=== PATIENT | female | born 2000 | race Caucasian/White ===

== ENCOUNTER 2020-09-23 19:38 | Emergency (ER) | payer OTHER, MEDICAID, SELFPAY ==
--- NOTE | 2020-09-23 19:52 | ED.GENADULT ---
HPI - General Adult General Chief complaint: Trauma Stated complaint: ABD PAIN - INJ Time Seen by Provider: 09/23/20 19:52 Source: patient Mode of arrival: ambulatory Limitations: no limitations History of Present Illness HPI narrative: states tripped and fell and hit the left side of her upper ribs into the corner of a counter at work. Injury occurred just prior to arrival. States pain only at the mid lateral rib area where there is a small bruise. There is no abdominal pain. There was no other injury. Onset (ago): minute(s) Location: chest Radiation: non-radiation Severity: mild Quality: aching Pain Consistency: constant Relieving factors: immobilization Exacerbating factors: movement Associated symptoms: denies other symptoms Treatments prior to arrival: none Related Data Allergies Allergy/AdvReac Type Severity Reaction Status Date / Time No Known Allergies Allergy Verified 09/23/20 20:06 [No Known Allergies*] Review of Systems Review of Systems: Constitutional: No Weight loss, No Fever, No Chills, No Night Sweats, No Fatigue, No Malaise ENT/Mouth: No Hearing loss, No Ear Pain, No Nasal Congestion Eyes: No Eye Pain, No Swelling, No Redness, No Foreign Body, No Discharge, No Vision Changes Cardiovascular: +CWP, No Chest Pain, No SOB, No Dyspnea on Exertion, No Orthopnea, No Edema, No Palpitations Respiratory: No Cough, No Sputum, No Wheezing, No Smoke Exposure, No Dyspnea Gastrointestinal: Musculoskeletal: No joint pain, No Myalgias, No Joint Swelling Skin: No Skin Lesions, No rash Neuro: No Weakness, No Numbness, No Paresthesias, No Loss of Consciousness, No Dizziness, No Headache Psych: No Social Issues Heme/Lymph: No Bruising, No Bleeding,No Lymphadenopathy Endocrine: No Polyuria, No Polydipsia, No Temperature Intolerance Yes all other systems are reviewed and are negative [facility], [facility] Past Medical History Attestation statement: The following information was validated with the patient. Medical History (Updated 09/23/20 @ 21:23 by Gerald Fairbanks NP) Hx of iron deficiency anemia No known health problems Social History Social History Smoking Status: Never smoker Use of substances other than those prescribed or required for medical reasons: No Advance Directives: No Advance Directives Information Provided: Yes Physical Exam Vital Signs: Vital Signs: Vital Signs Temp Pulse Resp BP Pulse Ox 09/23/20 20:13 97.8 F 85 18 108/73 100 Body Mass Index 23.6 Reviewed Const: General: cooperative and healthy appearing; No acute distress or intoxicated appearing Nutritional Appearance: average body habitus Orientation/consciousness: patient oriented x3 HENMT: Head: Yes normal to inspection Ears: hearing grossly normal bilaterally Eyes: General: appearance normal, both eyes and all related structures Visual Luevano: normal visual luevano by confrontation Neck: Neck: Yes normal visual inspection and No tender Thyroid: Thyroid normal Chest: Chest palpation & inspection: normal inspection of the chest Chest/axillae images: 1. slight area of ecchymosis. No crepitus. Resp: Effort & Inspection: normal respiratory effort Cardio: Jugular venous distension: no JVD GI: Inspection: Yes normal to inspection Percussion: Yes normal to percussion Auscultation: normal bowel sounds : General: Yes no CVA tenderness Back/Spine/Pelvis: Back: no CVA tenderness Skin: General skin exam: no rashes or lesions noted Neuro: General: patient oriented x3 Extrem: General: Yes normal to inspection Medical Decision Making Lab Data Labs: Lab Results 09/23/20 Range/Units 20:10 Urine Test NEGATIVE (NEGATIVE) Imaging Data Chest x-ray with ribs: Radiologist's impression: [address] [address] XRay Report Signed Patient: Bolivar Michelle#: [id number] : 2000Acct:[id number] Age/Sex: 20 / FADM Date: 09/23/20 Loc: HO.ED Attending Dr: Ordering Physician: Gerald Fairbanks NP Date of Service: 09/23/20 Procedure(s): XR ribs LT min 3V w CXR1V Accession Number(s): [id number] cc: Gerald Fairbanks GEOGRAPHIC INFORMATION SYSTEMS DIRECTOR~ EXAMINATION: XR RIBS, LEFT CLINICAL INFORMATION: [Pain status post injury. COMPARISON: None TECHNIQUE: 3 views of the left ribs were obtained. Chest one view. FINDINGS: Chest: Lungs are clear. No consolidation, pneumothorax, or pleural effusion. The cardiomediastinal silhouette and pulmonary vasculature are normal. Left RIBS: Osseous structures are unremarkable. Left RIBS are intact. No fractures are identified. XR/XR ribs LT min 3V w CXR1V IMPRESSION: Unremarkable chest examination. Unremarkable left rib examination. Dictated By:ANGIE UMANA MD Signed By:<Electronically signed by ANGIE UMANA MD in OV>09/23/202055 DD/ 51 TD/TT: Lining Machine [place] [facility] [place] Discharge Clinical Impression: Chest wall contusion Patient Disposition: Home, Self-Care Instructions: Contusion in Adults (ED) Additional Instructions: warm compress Gentle stretching Tylenol or ibuprofen per label instructions Return if any concerns or symptoms otherwise follow up with her primary care doctor as planned Because this injury occurred at work you can follow-up with employee health center if any further concerns or complication or return to the emergency room Thank you Referrals: Physician,None [Primary Care Provider] - 1 week ( primary care /employee health)
[2020-09-23 20:13] VITALS: BP 108/73; PULSE 85; RESP 18; TEMP 36.6; O2SAT 100; BMI 23.6
[2020-09-23 20:19] LABS: UPreg QC Valid YES; Urine Pregnancy NEGATIVE (NEGATIVE)
== END 2020-09-23 21:30 | disposition home or self-care (01) ==
PROVIDERS: Nurse Practitioner Primary Care; Emergency Provider Emergency Medicine
DX: S20.212A Contusion of left front wall of thorax, initial encounter (principal); W01.0XXA Fall on same level from slipping, tripping and stumbling without subsequent striking against object, initial encounter; D50.9 Iron deficiency anemia, unspecified; Y93.89 Activity, other specified; Y92.010 Kitchen of single-family (private) house as the place of occurrence of the external cause; Y99.9 Unspecified external cause status
CPT/HCPCS: 71101; 81025; 99283; 99284